=== PATIENT | male | born 1980 | race African-American/Black ===

== ENCOUNTER 2022-06-30 17:30 | Observation (INO) ==
[2022-06-30] MEDS ORDERED: SODIUM CHLORIDE 0.9% 1000ML 1,000 ML IV ONE (17:53)
[2022-06-30] MEDS ORDERED: ASPIRIN CHEW 324 MG PO STA (17:54)
--- NOTE | 2022-06-30 17:56 | Emergency Department Note ---
Impression & Plan Chest pain, Palpitations, Cardiomyopathy ED Provider Note NAME: JONATHON HATHAWAY AGE: 41 SEX: M : 1980 ARRIVES VIA: Walk-In INFORMANT: Patient ED PROVIDER(S): Claus Hess DO CHIEF COMPLAINT: Heart racing HPI: Patient is a 41-year-old male with a past medical history of cardiomyopathy and hypertension who presents to the ER for feeling his heart race. This has been going on constantly since yesterday morning. He denies any chest pain or shortness of breath but he feels his heart racing. This morning when he woke up he felt fine but then he started moving around and reoccurred. Has been persistent. He notes it currently has resolved now that he has gotten to the ER. Denies any belly pain, nausea, vomiting, or diarrhea. No dysuria, urgency, or frequency. No other exacerbating or remitting factors. He has never had this before. Does have a history of cardiomyopathy PAST MEDICAL HISTORY:See Below PAST SURGICAL HISTORY:See Below FAMILY HISTORY:See Below SOCIAL HISTORY:See Below HOME MEDICATIONS:See Below ALLERGIES:See Below VITALS:See Below PHYSICAL EXAMINATION: GENERAL: Sitting up in bed, alert, well appearing, well nourished, no distress, non-toxic EYE EXAM: normal conjunctiva. OROPHARYNX: no exudate, no erythema, lips, buccal mucosa, and tongue normal and mucous membranes are moist NECK: supple, no nuchal rigidity, no adenopathy, non-tender LUNGS: Clear to auscultation. Normal chest wall mechanics HEART: no murmurs, S1 normal and S2 normal ABDOMEN: abdomen soft, non-tender, normo-active bowel sounds, no masses, no rebound or guarding. UPPER EXTREMITIES: upper extremities are grossly normal. LOWER EXTREMITIES: No pitting edema. NEURO EXAM: Normal sensorium, cranial nerves II-XII grossly intact, normal speech, no gross weakness of arms, no gross weakness of legs. MEDICAL DECISION MAKING: Patient is a 41-year-old male who presents the ER with a past medical history of cardiomyopathy and hypertension who follows with Dr. Ta from [facility]. He presents for feeling his heart race as well as dizzy lightheaded and some mild pain with the fluttering. IV was established blood work is obtained. Symptoms have been present for the past 24 hours. Labs show no significant leukocytosis or anemia. D-dimer was negative. BMP along with LFTs bilirubin and lipase is unremarkable. Troponin was negative. COVID-negative. Chest x-ray clean. External records were reviewed. He was discussed with Dr. Guille Smallwood for further evaluation and work-up from the hospital service. Triage Nursing notes reviewed. Limited review of prior medical records performed Vital Signs: reviewed and remarkable for no significant abnormalities Differential diagnosis: Cardiac ischemia, aortic dissection, pulmonary embolism, pneumothorax, pneumonia, pericarditis, myocarditis, esophageal rupture, GERD, cholecystitis, pancreatitis, musculoskeletal, as well as other pathologies. ER treatment provided: See below Diagnostics interpreted by me include EKG and cardiac monitoring as listed below: -Cardiac Monitoring: An order was placed for continuous cardiac monitoring. The monitor shows a rate of 92 with sinus rhythm. -ECG: Sinus rhythm rate 89 Normal axis No PVCs, QTC 440 -Laboratory studies:Interpreted by me as stated above in MDM and shown below. Imaging studies: Xrays: As interpreted by me: Portable AP portable view of the chest unremarkable for any pneumonia CTs show: none Consultation(s): [facility] Procedures:none Critical Care: None Past Med/Surg History Medical History (Updated 06/30/22 @ 23:44 by Claus Hess DO) Cardiomyopathy follows with Dr. Fountain Obesity (BMI 30-39.9) Sleep apnea CPAP Surgical History History of shoulder surgery Left History of tooth extraction Family History Brother Obstructive sleep apnea Social History Smoking Status: Former smoker Second Hand Exposure: No; Hx Alcohol Use: Yes Hx Substance Use: No Preferred Language: Kiswahili Communication Ability: Effective Account Services Representative Required: No Beliefs That Will Affect Care: None marital status: Current Living Situation: Family current occupational status: employed current occupation: [employer] Feels Safe at Home: Yes Assistive Devices: None Allergies Allergies Allergy/AdvReac Type Severity Reaction Status Date / Time No Known Drug Allergies Allergy Unknown Uncoded 06/30/22 20:58 Home Meds Home Medications Medication Instructions Recorded Confirmed losartan 25 mg tablet 25 mg PO QAM 12/21/21 02/05/23 multivitamin 1 tab PO QAM 06/22/21 06/30/22 Results & Data (ED) Vital Signs Vital Signs - 24 hr 06/30/22 17:32 06/30/22 17:55 06/30/22 17:55 Temperature 36.5 C Temperature Source Temporal Artery Scan Pulse Rate 95 H Pulse Rate from SpO2 Sensor Pulse Rhythm Respiratory Rate 18 20 Respiratory Effort / Characteristics Non-Labored Non-Labored Spontaneous Respiratory Depth Normal Normal Respiratory Pattern Regular Regular Blood Pressure 158/96 H Blood Pressure [Left Arm] 141/96 H Blood Pressure Mean 116 Blood Pressure Mean [Left Arm] 111 Blood Pressure Position Sitting Blood Pressure Position [Left Arm] Sitting Pulse Oximetry 99 97 97 Oxygen Delivery Method Room Air Room Air Room Air Oxygen Flow Rate 0 Sepsis Recent Fever Within 48 Hours No Sepsis New/Unexplained Change in Mental Status No Sepsis Action Taken by Nursing No Action Required Oxygen Flow Rate - Titration 0 Pulse Oximetry Post Tiitration 97 06/30/22 17:55 06/30/22 18:03 06/30/22 18:30 Temperature Temperature Source Pulse Rate 82 84 Pulse Rate from SpO2 Sensor 84 Pulse Rhythm Regular Respiratory Rate 20 22 Respiratory Effort / Characteristics Respiratory Depth Respiratory Pattern Blood Pressure 135/92 Blood Pressure [Left Arm] Blood Pressure Mean 106 Blood Pressure Mean [Left Arm] Blood Pressure Position Blood Pressure Position [Left Arm] Pulse Oximetry 97 97 Oxygen Delivery Method Room Air Oxygen Flow Rate Sepsis Recent Fever Within 48 Hours Sepsis New/Unexplained Change in Mental Status Sepsis Action Taken by Nursing Oxygen Flow Rate - Titration Pulse Oximetry Post Tiitration 06/30/22 18:30 06/30/22 19:00 06/30/22 20:00 Temperature Temperature Source Pulse Rate 79 79 78 Pulse Rate from SpO2 Sensor 80 78 78 Pulse Rhythm Respiratory Rate 21 24 24 Respiratory Effort / Characteristics Respiratory Depth Respiratory Pattern Blood Pressure 126/84 134/80 Blood Pressure [Left Arm] Blood Pressure Mean 98 98 Blood Pressure Mean [Left Arm] Blood Pressure Position Blood Pressure Position [Left Arm] Pulse Oximetry 98 97 97 Oxygen Delivery Method Room Air Room Air Oxygen Flow Rate Sepsis Recent Fever Within 48 Hours Sepsis New/Unexplained Change in Mental Status Sepsis Action Taken by Nursing Oxygen Flow Rate - Titration Pulse Oximetry Post Tiitration 06/30/22 20:30 Temperature Temperature Source Pulse Rate 79 Pulse Rate from SpO2 Sensor 80 Pulse Rhythm Respiratory Rate 21 Respiratory Effort / Characteristics Respiratory Depth Respiratory Pattern Blood Pressure 129/83 Blood Pressure [Left Arm] Blood Pressure Mean 98 Blood Pressure Mean [Left Arm] Blood Pressure Position Blood Pressure Position [Left Arm] Pulse Oximetry 96 Oxygen Delivery Method Room Air Oxygen Flow Rate Sepsis Recent Fever Within 48 Hours Sepsis New/Unexplained Change in Mental Status Sepsis Action Taken by Nursing Oxygen Flow Rate - Titration Pulse Oximetry Post Tiitration Laboratory Data 06/30/22 17:51 06/30/22 17:51 Lab Results 06/30/22 06/30/22 06/30/22 Range/Units 17:51 17:51 17:51 WBC 10.36 (4.8-10.8) K/ul RBC 5.16 (4.70-6.10) M/uL Hgb 14.8 (14.0-18.0) g/dl Hct 44.7 (42.0-52.0) % MCV 86.6 (80.0-100.0) fL MCH 28.7 (25.0-34.0) pg MCHC 33.1 (32.0-36.0) g/dL RDW Std Deviation 38.6 (36.4-46.3) fL RDW Coeff of Magy 12.1 (11.5-14.5) % Plt Count 234 (130-400) K/uL MPV 9.5 (9.4-12.4) fL Immature Gran % (Auto) 0.1 % Neut % (Auto) 63.6 % Lymph % (Auto) 24.7 % Summers % (Auto) 8.8 % Eos % (Auto) 2.0 % Baso % (Auto) 0.8 % Neut # (Auto) 6.59 H (1.40-6.50) K/uL Lymph # (Auto) 2.56 (1.2-3.4) K/uL Summers # (Auto) 0.91 H (0.11-0.59) K/uL Eos # (Auto) 0.21 (0-0.50) K/uL Baso # (Auto) 0.08 (0-0.2) K/uL Immature Gran # (Auto) 0.01 (0.01-0.20) K/uL D-Dimer 200 (0-500) ug/L FEU Sodium 138 (136-145) mmol/L Potassium 3.8 (3.5-5.1) mmol/L Chloride 102 (98-107) mmol/L Carbon Dioxide 31 (21-32) mmol/L Anion Gap 5 (3-11) BUN 16 (6-23) mg/dl Creatinine 1.22 (0.6-1.4) mg/dl Est Cr Clr Drug Dosing 131.2 ml/min Est GFR ( Amer) 85.4 ml/min Est GFR (Non-Af Amer) 73.7 ml/min BUN/Creatinine Ratio 13.1 (10-20) Glucose 82 (70-99(Fasting)) mg/dl Calcium 9.8 (8.5-10.1) mg/dl Total Bilirubin 0.4 (0.2-1.0) mg/dl AST 19 (13-39) U/L ALT 25 (7-52) U/L Alkaline Phosphatase 94 (34-104) U/L Troponin I High Sens 4.5 (0-20) pg/ml Total Protein 7.8 (6.0-8.3) gm/dl Albumin 4.6 (3.4-5.0) gm/dl Globulin 3.2 (2.5-4.0) gm/dl Albumin/Globulin Ratio 1.4 (0.9-2) Lipase 26 (11-82) U/L Administered Medications Discontinued Medications Aspirin (Aspirin Chew 324 Mg) 324 mg PO NOW STA Stop: 06/30/22 17:55 Last Admin: 06/30/22 18:11 Dose: 324 mg Documented By: JENNA Sodium Chloride (Nss 1000ml) 1,000 mls @ 999 mls/hr IV .Q1H1M ONE Stop: 06/30/22 18:53 Last Infusion: 06/30/22 20:28 Dose: 0 mls/hr Documented By: Admin: 06/30/22 18:11 Dose: 999 mls/hr Documented By: JENNA Potassium Chloride (Potassium Chloride Crtab 20 Meq Tabcr) 20 meq PO NOW STA Stop: 06/30/22 22:22 Last Admin: 06/30/22 22:40 Dose: 20 meq Documented By: Imaging Data Radiologist's Impression: Chest X-Ray 06/30/22 17:41 SINGLE VIEW CHEST CLINICAL HISTORY: Atypical chest pain FINDINGS: An AP, portable, upright chest radiograph is compared to study dated 04/01/2013. The cardiomediastinal silhouette is unremarkable. The lungs and pleural spaces are clear. No pneumothorax is seen. The bony thorax is grossly intact. IMPRESSION: No active disease in the chest. ACT 112: Negative or not required by law. Electronically signed by: Dieudonne Armstrong M.D. 06/30/2022 6:09 PM Discharge Plan Visit Data Chief Complaint: Chest Pain Stated Complaint: CHEST PAIN ED Provider: Claus Hess Discharge Problem: Chest pain, Palpitations, Cardiomyopathy Patient Disposition: Admitted As Inpatient Discharge Instructions Interventions: ED Discharge Assessment Last Done: 06/30/22 21:53
[2022-06-30 18:01] LABS: Basophils # (auto) 0.08 K/uL (0-0.2); Basophils % (auto) 0.8 %; Eosinophils # (auto) 0.21 K/uL (0-0.50); Hematocrit (blood only) 44.7 % (42.0-52.0); Hemoglobin 14.8 g/dl (14.0-18.0); Immature Granulocytes # (auto) 0.01 K/uL (0.01-0.20); Immature Granulocytes % (auto) 0.1 %; Lymphocytes # (auto) 2.56 K/uL (1.2-3.4); Lymphocytes % (auto) 24.7 %; Mean Corpuscular Hemoglobin 28.7 pg (25.0-34.0); Mean Corpuscular Hgb Conc 33.1 g/dL (32.0-36.0); Mean Corpuscular Volume 86.6 fL (80.0-100.0); Mean Platelet Volume 9.5 fL (9.4-12.4); Monocytes # (auto) 0.91 K/uL (0.11-0.59); Monocytes % (auto) 8.8 %; Neutrophils # (auto) 6.59 K/uL (1.40-6.50); Neutrophils % (auto) 63.6 %; Platelet Count 234 K/uL (130-400); RDW Coefficient of Variation 12.1 % (11.5-14.5); RDW Standard Deviation 38.6 fL (36.4-46.3); Red Blood Count 5.16 M/uL (4.70-6.10); White Blood Count 10.36 K/ul (4.8-10.8)
--- NOTE | 2022-06-30 18:11 | XRay Report ---
SINGLE VIEW CHEST CLINICAL HISTORY: Atypical chest pain FINDINGS: An AP, portable, upright chest radiograph is compared to study dated 04/01/2013. The cardiom ediastinal silhouette is unremarkable. The lungs and pleural spaces are clear. No pneumothorax is see n. The bony thorax is grossly intact. IMPRESSION: No active disease in the chest. ACT 112: Negative or not required by law. Electronically signed by: Dieudonne Armstrong M.D. 06/30/2022 6:09 PM
[2022-06-30 18:12] LABS: D Dimer 200 ug/L FEU (0-500)
[2022-06-30 18:24] LABS: Albumin Globulin Ratio 1.4 (0.9-2); Albumin Level 4.6 gm/dl (3.4-5.0); BUN Creatinine Ratio 13.1 (10-20); Bilirubin,Total 0.4 mg/dl (0.2-1.0); Calcium 9.8 mg/dl (8.5-10.1); Creatinine Clr Calc Pharmacy 131.2 ml/min; Est GFR (African American) 85.4 ml/min; Est GFR (Non-African American) 73.7 ml/min; Globulin 3.2 gm/dl (2.5-4.0); Potassium 3.8 mmol/L (3.5-5.1); Total Protein 7.8 gm/dl (6.0-8.3)
[2022-06-30 18:31] LABS: Troponin I High Sensitivity 4.5 pg/ml (0-20)
--- NOTE | 2022-06-30 20:18 | History & Physical Report ---
Date of Service June 30, 2022 Assessment & Plan (1) Palpitations: Plan: Nacho is a 41 year old male w/ PmHx of non-ischemic cardiomyopathy w/ EF 50% and obstructive sleep apnea admitted for chest palpitation cardiac assessment. Palpitations: -CBC, CMP, lipase, d-dimer, troponin normal -EKG NSR w/o ischemic changes. -CXR negative for cardiopulmonary processes. -Given history of cardiomyopathy will monitor overnight into tomorrow. -Complete echocardiogram ordered. -Mangesium level ordered. -Continue home losartan. -Admitted to med/tele. Severe obstructive sleep apnea: -Continue CPAP qHS. DVT Prophylaxis: Patient mobile, not needed at this time. F/E/N/GI: Regular diet. Code status: Full code Dispo: Med/tele observation. (2) Severe obstructive sleep apnea: History of Present Illness Chief Complaint: Chest pain Primary Care Provider: Angelita Perez Nacho is a 41 year old male w/ PmHx of non-ischemic cardiomyopathy w/ EF 50% (10/2019) and LINDA who presented to the ED for feeling of heart racing. Patient stated that he was in his usual state of health until yesterday morning when he started having feelings of heart racing and noticed throughout the day from his smart watch that his heart rate was in the 100's. He states that this went away when he went to sleep and his heart rate returned to the 60's. Friday he still felt these symptoms after moving about. Of note he did say he has been moving around and on his feet a lot more Friday and Friday. This is the first time he has felt symptoms such as this. He denies any chest pain, chest pressure, shortness of breath, abdominal pain, diarrhea, constipation, fevers, chills. No recent international travel. Patient has a past history of non-ischemic cardiomyopathy w/ an EF 50% (10/2019) for which he follows with Dr. Fountain outpatient every 6 months to a year. He has a history of LINDA for which he wears CPAP qHS. In the ED vitals were stable, CBC, CMP, lipase, d-dimer, troponin were all WNL. EKG NSR w/o any acute ischemic changes. CXR negative for any acute disease. Allergies Allergy/AdvReac Type Severity Reaction Status Date / Time No Known Drug Allergies Allergy Unknown Uncoded 06/30/22 20:58 Home Medications Medication Instructions Recorded Confirmed Type losartan 25 mg tablet 25 mg PO QAM 05/15/21 06/30/22 History multivitamin 1 tab PO QAM 06/22/21 06/30/22 History Past Med/Surg History Medical History (Updated 06/30/22 @ 21:03 by Leroy Gaming DO) Cardiomyopathy follows with Dr. Fountain Obesity (BMI 30-39.9) Sleep apnea CPAP Surgical History History of shoulder surgery Left History of tooth extraction Family History Brother Obstructive sleep apnea Social History Smoking Status: Former smoker Second Hand Exposure: No; Hx Alcohol Use: Yes Hx Substance Use: No Preferred Language: Kazakh Communication Ability: Effective Can Line Examiner Required: No Beliefs That Will Affect Care: None marital status: Current Living Situation: Family current occupational status: employed current occupation: [employer] Feels Safe at Home: Yes Assistive Devices: None Review of Systems Review of Systems: As per HPI. Physical Exam Constitutional: WD/WN, vitals as above Eyes: PERRL, conjunctivae normal, anicteric sclerae Respiratory: normal respiratory effort, lungs clear to auscultation Cardiovascular: RRR, no murmur, no edema Chest (Breasts): normal inspection/palpation of breasts Gastrointestinal (Abdomen): normal bowel sounds, soft, nontender, no hepatosplenomegaly Skin: no rashes, warm and dry Psychiatric: A+Ox3, euthymic affect Results & Data Results & Data ([facility]) Vital Signs (Past 12 Hours) Vital Signs Temp Pulse Resp BP BP Pulse Ox O2 Del Method 06/30/22 19:00 79 24 126/84 97 Room Air 06/30/22 18:30 79 21 98 06/30/22 18:30 135/92 06/30/22 18:03 84 22 97 06/30/22 17:55 82 20 97 Room Air 06/30/22 17:55 20 141/96 H 97 Room Air 06/30/22 17:55 97 Room Air 06/30/22 17:32 36.5 C 95 H 18 158/96 H 99 Room Air O2 Flow Rate 06/30/22 19:00 06/30/22 18:30 06/30/22 18:30 06/30/22 18:03 06/30/22 17:55 06/30/22 17:55 06/30/22 17:55 0 06/30/22 17:32 Resident Activity Tracking Resident Involvement: Resident Care Provided Care Provided: Adult [facility]
[2022-06-30] MEDS ORDERED: ACETAMINOPHEN 325 MG TAB PO PRN (22:21)
[2022-06-30] MEDS ORDERED: POTASSIUM CHLORIDE CRTAB 20 MEQ TABCR PO STA (22:21)
[2022-07-01 06:26] LABS: Basophils # (auto) 0.07 K/uL (0-0.2); Eosinophils # (auto) 0.27 K/uL (0-0.50); Eosinophils % (auto) 3.8 %; Hematocrit (blood only) 39.3 % (42.0-52.0); Immature Granulocytes # (auto) 0.02 K/uL (0.01-0.20); Immature Granulocytes % (auto) 0.3 %; Lymphocytes # (auto) 1.95 K/uL (1.2-3.4); Lymphocytes % (auto) 27.8 %; Mean Corpuscular Hemoglobin 28.6 pg (25.0-34.0); Mean Corpuscular Hgb Conc 33.1 g/dL (32.0-36.0); Mean Corpuscular Volume 86.4 fL (80.0-100.0); Mean Platelet Volume 9.6 fL (9.4-12.4); Monocytes # (auto) 0.65 K/uL (0.11-0.59); Monocytes % (auto) 9.3 %; Neutrophils # (auto) 4.06 K/uL (1.40-6.50); Neutrophils % (auto) 57.8 %; Platelet Count 191 K/uL (130-400); RDW Coefficient of Variation 12.3 % (11.5-14.5); RDW Standard Deviation 39.4 fL (36.4-46.3); Red Blood Count 4.55 M/uL (4.70-6.10); White Blood Count 7.02 K/ul (4.8-10.8)
[2022-07-01 06:44] LABS: BUN Creatinine Ratio 16.7 (10-20); Calcium 8.1 mg/dl (8.5-10.1); Creatinine Clr Calc Pharmacy 168.1 ml/min; Est GFR (African American) 114.1 ml/min; Est GFR (Non-African American) 98.5 ml/min; Potassium 3.9 mmol/L (3.5-5.1)
[2022-07-01] MEDS ORDERED: LOSARTAN POTASSIUM 25 MG TAB PO SCH (09:00)
--- NOTE | 2022-07-01 09:45 | Electrocardiogram Report ---
Test Reason : Blood Pressure : / mmHG Vent. Rate : 089 BPM Atrial Rate : 089 BPM P-R Int : 158 ms QRS Dur : 102 ms QT Int : 362 ms P-R-T Axes : 040 -02 023 degrees QTc Int : 440 ms Normal sinus rhythm Voltage criteria for left ventricular hypertrophy Abnormal ECG When compared with ECG of 27-JUN-2002 03:28, No significant change was found Confirmed by Eduar Baker ([id number]) on 07/01/2022 9:44:48 AM Referred By: REFERRED SELF Confirmed By:Eduar Baker
--- NOTE | 2022-07-01 10:33 | XCELERA ---
[id number]
--- NOTE | 2022-07-01 14:56 | Discharge Summary ---
Date of Service July 01, 2022 Admission HPI Per Admitting Provider Nacho is a 41 year old male w/ PmHx of non-ischemic cardiomyopathy w/ EF 50% (10/2019) and LINDA who presented to the ED for feeling of heart racing. Patient stated that he was in his usual state of health until yesterday morning when he started having feelings of heart racing and noticed throughout the day from his smart watch that his heart rate was in the 100's. He states that this went away when he went to sleep and his heart rate returned to the 60's. Friday he still felt these symptoms after moving about. Of note he did say he has been moving around and on his feet a lot more Friday and Friday. This is the first time he has felt symptoms such as this. He denies any chest pain, chest pressure, shortness of breath, abdominal pain, diarrhea, constipation, fevers, chills. No recent international travel. Patient has a past history of non-ischemic cardiomyopathy w/ an EF 50% (10/2019) for which he follows with Dr. Fountain outpatient every 6 months to a year. He has a history of LINDA for which he wears CPAP qHS. In the ED vitals were stable, CBC, CMP, lipase, d-dimer, troponin were all WNL. EKG NSR w/o any acute ischemic changes. CXR negative for any acute disease. Principal Diagnosis Palpitations Discharge Exam Constitutional WD/WN, vitals as above Eyes + anicteric sclerae Neck normal visual inspection Respiratory normal respiratory effort, lungs clear to auscultation Cardiovascular RRR, no murmur, no edema Gastrointestinal (Abdomen) normal bowel sounds, soft, nontender, no hepatosplenomegaly Musculoskeletal Head/Neck/Chest: normocephalic and head atraumatic Skin no rashes, warm and dry Neurologic moves all extremities Psychiatric A+Ox3, euthymic affect Lymphatic no cervical lymphadenopathy Discharge Data Allergies Allergy/AdvReac Type Severity Reaction Status Date / Time No Known Drug Allergies Allergy Unknown Uncoded 06/30/22 20:58 Consultations 06/30/22 21:00 ED Decision to Admit Stat Hospital Course (1) Palpitations: Nacho is a 41 year old male w/ PmHx of non-ischemic cardiomyopathy w/ EF 50% a nd obstructive sleep apnea admitted for chest palpitation cardiac assessment. Palpitations: Patient came to the emergency department for evaluation of tachycardia and palpi tations. While he was here he had multiple labs including CBC, CMP, lipase, D- dimer, magnesium, and troponin all of which were within normal limits. EKG was performed that was normal sinus rhythm without any ischemic changes. Chest x- ray negative for cardiopulmonary findings. He was admitted to the hospital essentially for chest pain rule out and put him on telemetry to evaluate him overnight for palpitations with history of nonischemic cardiomyopathy with EF of 5)%. Echocardiogram in the morning had shown improvement from previous echoes that were in his [facility] chart. Telemetry did not reveal any arrhythmia, PVCs, or PACs. For this reason we felt it was safe for him to be discharged home with an order for a 30-day event monitor placed with close PCP follow-up. Severe obstructive sleep apnea: -Continue CPAP qHS. F/E/N/GI: Regular diet. Code status: Full code Dispo: Discharge home with close follow-up (2) Severe obstructive sleep apnea: Total Time Total Time Spent Total Time Spent (In Minutes): 30 Discharge Plan Discharge Items Patient Disposition: Home - Self-Care Reason For Visit: HEART FLUTTER Discharge Diagnosis: Palpitations Activity: Per Instructions section Non-emergency contact: Primary Care Provider and Ship Rigger Call non-emergency contact if: you have any medication questions Follow-up/Referrals: Angelita Perez [Primary Care Provider] - Diet: Heart Healthy Addtl Attending Provider Instructions: You were seen in the hospital for evaluation of tachycardia and palpitations. While you are here you were evaluated by our ED provider as well as our medicine team. He had a litany of tests including EKG, echocardiogram, BMP, and CBC. Majority of your tests returned back positive. In fact, your echocardiogram had shown improvement of your left heart compared to previous echoes that we had available to us which is a great sign. For your palpitations, even though we did not see anything on telemetry to suggest A-fib or any other form of arrhythmia, we would like to get you set up with a 30-day event monitor. We are going to do this so that when you do feel symptoms are your watch tells you that you are having a high heart rate you can automatically tell this device to record your heart rhythm which will be sent to the general farmworker. If you are having an abnormal rhythm such as paroxysmal atrial fibrillation, we can then treated accordingly. Otherwise we have no medication changes at this time. Please continue to use your CPAP machine at night as this is the best modality to help reduce strain on your heart while you are sleeping. Please follow-up with your primary care provider within 2 weeks of discharge for further discussion and management. Has been a pleasure to be part of your care and we wish you the best of both your health and your recovery. Pending Studies at Discharge: No Stand-Alone Forms: My [facility], Smoking Cessation Medications and DC Order Prescriptions: Continued losartan 25 mg tablet 25 mg PO QAM multivitamin Tablet 1 tab PO QAM Rx Instructions: Takes if remembers Discharge Orders: Discharge Order (Routine); Ordered 07/01/22 Ordered By: Guy Lopez/Other Patient Handouts: Understanding Heart Palpitations, ED Palpitations Admission Data Admit Date/Time: 06/30/22 20:33 Attending Provider: Tayla Duong Admit Provider: Leroy Gaming Primary Care Provider: Angelita Perez Other Providers: Guille Smallwood Other Interventions: Discharge Summary Assessment (RN) Last Done: 07/01/22 16:56 Supervising Physician Co-Signing Physician Notes Resident Physician Supervision Note: I independently interviewed and examined the patient and verified the freeman history and physical, reviewed labs and image studies and agree with resident findings and care plan.
== END 2022-07-01 17:34 | disposition home or self-care (01) ==
LOC: 2N 17:30 → ED 17:30 → SUATTDRO 20:33 → 2N 21:53